=== PATIENT | male | born 1945 | race Caucasian/White ===

== ENCOUNTER 2017-12-02 16:22 | Emergency (ER) | payer OTHER ==
[2017-12-02 16:36] VITALS: RESP 16; O2SAT 94
[2017-12-02] MEDS ORDERED: NS 1,000 ML IV ONE (17:17)
--- NOTE | 2017-12-02 17:17 | EDPHY ---
H & P Stated Complaint: sent by PCP, complains of pain with urination, had abnormal lab results Time Seen by Provider: 12/02/17 17:17 HPI/ROS: CHIEF COMPLAINT: Polyuria, polydipsia HISTORY OF PRESENT ILLNESS: The patient presents to the emergency department from the primary care provider with a history of polyuria and polydipsia. The patient has a history of type 2 diabetes. The patient denies any history of fever, cough or congestion. The patient is currently not on medications for type 2 diabetes as he only had mildly elevated blood sugars. The patient denies any abdominal pain, vomiting or diarrhea. The patient thought he may have had a urinary tract infection prompting his visit to the PCPs office today. His urinalysis demonstrated no evidence of an infection however he was noted to have high glucose in his urine. REVIEW OF SYSTEMS: A comprehensive 10 point review of systems is otherwise negative aside from elements mentioned in the history of present illness. Source: Patient Exam Limitations: No limitations - Personal History Current Tetanus Diphtheria and Acellular Pertussis (TDAP): Yes Tetanus Vaccine Date: 2010 - Medical/Surgical History Hx Asthma: No Hx Chronic Respiratory Disease: No Hx Diabetes: No Hx Cardiac Disease: Yes Hx Renal Disease: No Hx Cirrhosis: No Hx Alcoholism: No Hx HIV/AIDS: No Hx Splenectomy or Spleen Trauma: No Other PMH: HTN, hyperlipidemia, multiple orthopedic injuries - Social History Smoking Status: Never smoked - Physical Exam Exam: General Appearance: Alert, no distress Eyes: Pupils equal and round no pallor or injection ENT, Mouth: Mucous membranes moist Respiratory: There are no retractions, lungs are clear to auscultation Cardiovascular: Regular rate and rhythm Gastrointestinal: Abdomen is soft and nontender, no masses, bowel sounds normal Neurological: 5/5 strength all 4 extremities, cranial nerves 2-12 grossly intact Skin: Warm and dry, no rashes Musculoskeletal: Neck is supple nontender Extremities: symmetrical, full range of motion Constitutional: Initial Vital Signs Temperature (C) 36.4 C 12/02/17 16:32 Heart Rate 106 H 12/02/17 16:32 Respiratory Rate 16 12/02/17 16:32 Blood Pressure 117/82 H 12/02/17 16:32 O2 Sat (%) 94 12/02/17 16:32 O2 Delivery Mode Room Air Allergies/Adverse Reactions: No Known Allergies Allergy (Verified 12/02/17 16:30) Home Medications: Medication Instructions Recorded Atorvastatin Calcium 12/02/17 Lisinopril 12/02/17 traZODone [traZODONE 50MG (*)] 12/02/17 Medical Decision Making ED Course/Re-evaluation: The patient presents to the ED with with mild polyuria. The patient's blood sugar is 300. He is a known type 2 diabetic not on medications. He has no evidence of DKA. The patient will be advised to follow up with his primary care provider for discussion of his hyperglycemia management. The patient did receive a L of normal saline in the emergency department. He is in no acute distress. The patient had a negative urinalysis at his primary care provider's office. Differential Diagnosis: Differential diagnosis considered includes diabetic ketoacidosis, dehydration, hyperglycemia - Data Points Laboratory Results: Laboratory Results 12/02/17 17:41 12/02/17 17:41 12/02/17 12/02/17 12/02/17 17:41 17:41 17:41 WBC 6.60 10^3/uL 10^3/uL (3.80-9.50) RBC 4.39 10^6/uL L 10^6/uL (4.40-6.38) Hgb 14.3 g/dL g/dL (13.7-17.5) Hct 40.2 % % (40.0-51.0) MCV 91.6 fL fL (81.5-99.8) MCH 32.6 pg pg (27.9-34.1) MCHC 35.6 g/dL g/dL (32.4-36.7) RDW 12.7 % % (11.5-15.2) Plt Count 331 10^3/uL 10^3/uL (150-400) MPV 8.6 fL L fL (8.7-11.7) Neut % (Auto) 56.3 % % (39.3-74.2) Lymph % (Auto) 29.8 % % (15.0-45.0) [place] % (Auto) 9.4 % % (4.5-13.0) Eos % (Auto) 3.3 % % (0.6-7.6) Baso % (Auto) 0.9 % % (0.3-1.7) Nucleat RBC Rel Count 0.0 % % (0.0-0.2) Absolute Neuts (auto) 3.71 10^3/uL 10^3/uL (1.70-6.50) Absolute Lymphs (auto) 1.97 10^3/uL 10^3/uL (1.00-3.00) Absolute Monos (auto) 0.62 10^3/uL 10^3/uL (0.30-0.80) Absolute Eos (auto) 0.22 10^3/uL 10^3/uL (0.03-0.40) Absolute Basos (auto) 0.06 10^3/uL 10^3/uL (0.02-0.10) Absolute Nucleated RBC 0.00 10^3/uL 10^3/uL (0-0.01) Immature Gran % 0.3 % % (0.0-1.1) Immature Gran # 0.02 10^3/uL 10^3/uL (0.00-0.10) VBG pH 7.40 (7.31-7.42) Sodium 134 mEq/L L mEq/L (135-145) Potassium 4.4 mEq/L mEq/L (3.5-5.2) Chloride 95 mEq/L L mEq/L (97-110) Carbon Dioxide 24 mEq/l mEq/l (22-31) Anion Gap 15 mEq/L mEq/L (8-16) BUN 19 mg/dL mg/dL (7-23) Creatinine 0.9 mg/dL mg/dL (0.7-1.3) Estimated GFR > 60 Glucose 307 mg/dL H mg/dL (70-100) Calcium 9.9 mg/dL mg/dL (8.5-10.4) Medications Given: Discontinued Medications Sodium Chloride (Ns) 1,000 mls @ 0 mls/hr IV EDNOW ONE; Wide Open PRN Reason: Protocol Stop: 12/02/17 17:18 Last Admin: 12/02/17 17:39 Dose: 1,000 mls Departure - Departure Disposition: Home, Routine, Self-Care Clinical Impression: Hyperglycemia Condition: Good Instructions: Diabetic Hyperglycemia (ED) Additional Instructions: 1. Please return to the emergency department for weakness, vomiting or other concerns. 2. Please contact your regular physician tomorrow to discuss the possibility of beginning medications for management of your blood sugars. 3. You have no evidence of a diabetic ketoacidosis or diabetic emergency based upon our evaluation today. Referrals: Lizz Johnson MD [Primary Care Provider] - As per Instructions
[2017-12-02 17:55] LABS: PLATELET COUNT 331 10^3/uL (150-400)
[2017-12-02 19:18] VITALS: BP 133/82; PULSE 68; TEMP 98.1
== END 2017-12-02 19:17 | disposition home or self-care (01) ==
DX: E11.65 Type 2 diabetes mellitus with hyperglycemia (principal); I10 Essential (primary) hypertension; E86.9 Volume depletion, unspecified